=== PATIENT | female | born 1960 | race Caucasian/White ===

== ENCOUNTER 2020-04-09 18:36 | Inpatient (IN) ==
[2020-04-09] MEDS ORDERED: Morphine Sulfate 2 MG/ML SYRINGE IVP ONE (19:13)
[2020-04-09] MEDS ORDERED: 0.9 % Sodium Chloride 1,000 ML IVC ONE (19:18)
[2020-04-09] MEDS ORDERED: Dexamethasone 4 MG/ML VIAL IVP ONE (19:18)
[2020-04-09 19:23] LABS: Basophils % 0.2 %; Hematocrit 37.6 % (35.3-44.9); Hemoglobin 12.3 g/dL (11.5-15.4); Immature Granulocytes % 2.1 % (0-4); Lymphocytes # 0.4 K/mcL (0.6-4.6); Lymphocytes % 5.2 %; Mean Corpuscular HGB Conc 32.7 g/dL (31.6-35.5); Mean Corpuscular Hemoglobin 31.8 pg (28.0-33.3); Mean Corpuscular Volume 97.2 fL (83.0-100.0); Mean Platelet Volume 8.8 fL (9.4-12.4); Monocytes # 0.3 K/mcL (0.0-1.3); Monocytes % 3.9 %; Neutrophils # 7.2 K/mcL (1.6-8.9); Platelet Count 167 K/mcL (140-400); Red Blood Count 3.87 M/mcL (3.82-4.97); Red Cell Distribution Width 13.4 % (11.5-14.5); Segmented Neutrophils % 88.6 %; White Blood Count 8.1 K/mcL (4.3-11.1)
[2020-04-09 19:45] LABS: BUN/Creatinine Ratio 18 (6-26); Blood Urea Nitrogen 12 mg/dL (8-23); Calcium 8.8 mg/dL (8.6-10.3); Carbon Dioxide 22 mEq/L (23-29); Chloride 102 mEq/L (98-107); Glucose 119 mg/dL (70-105); Osmolality,Calculated 281 (280-300); Potassium 3.9 mEq/L (3.5-5.1); Sodium 135 mEq/L (136-145); eGFR For African Americans > 60 (> 60); eGFR For Non-African Americans > 60 (> 60)
[2020-04-09 19:46] LABS: Troponin I < 0.03 ng/mL (< 0.04)
[2020-04-09 20:20] LABS: Bacteria,Urine Many per hpf (None-Few); Bilirubin,Urine Small (Negative); Blood,Urine Negative (Negative); Clarity,Urine Turbid (Clear); Color,Urine Yellow (Yellow); Glucose,Urine (UA) Normal (Normal); Ketones,Urine 80 mg/dL (Negative); Leukocyte Esterase,Urine Trace (Negative); Mucus,Urine Few per lpf (None-Few); Nitrite,Urine Positive (Negative); Protein,Urine 50 mg/dL (Neg-Trace); RBC,Urine 0-3 per hpf (0-3); Specific Gravity,Urine 1.027 (1.010-1.025); Squamous Epithelial Cell,Urine Moderate per hpf (None-Few)
[2020-04-09] MEDS ORDERED: levoFLOXacin 750 MG/150 ML 750 MG/150 ML BAG IVPB ONE (20:23)
[2020-04-09] MEDS ORDERED: Isovue-370 500 ML BOTTLE IVP ONE (20:38)
[2020-04-09] MEDS ORDERED: Ondansetron 4 MG/2 ML VIAL IVP ONE (23:11)
[2020-04-09 23:59] LABS: Adenovirus Not Detected (Not Detect); Coronavirus 229E Not Detected (Not Detect); Coronavirus HKU1 Not Detected (Not Detect); Coronavirus NL63 Not Detected (Not Detect); Coronavirus OC43 Not Detected (Not Detect)
[2020-04-10] LABS: Bordetella Pertussis Not Detected (Not Detect); Chlamydophila pneumoniae Not Detected (Not Detect); Human Metapneumovirus Not Detected (Not Detect); Human Rhinovirus/Enterovirus Not Detected (Not Detect); Influenza A Subtype 2009 H1 Not Detected (Not Detect); Influenza B Not Detected (Not Detect); Mycoplasma pneumoniae Not Detected (Not Detect); Parainfluenza Virus 1 Not Detected (Not Detect); Parainfluenza Virus 2 Not Detected (Not Detect); Parainfluenza Virus 3 Not Detected (Not Detect); Parainfluenza Virus 4 Not Detected (Not Detect); Respiratory Syncytial Virus Not Detected (Not Detect); SARS-CoV-2 DETECTED (Not Detect)
[2020-04-10] MEDS ORDERED: Naloxone 0.4 MG/ML INJ IVP PRN (00:49)
[2020-04-10] MEDS ORDERED: Furosemide 40 MG/4 ML VIAL IVP ONE (00:59)
[2020-04-10] MEDS ORDERED: Benzonatate 100 MG CAPSULE PO PRN (02:31)
[2020-04-10] MEDS: *HR* Enoxaparin 40 MG/0.4 ML SYRINGE SQ SCH (05:06)
[2020-04-10 06:19] LABS: Basophils % 0.3 %; Hematocrit 36.7 % (35.3-44.9); Hemoglobin 12.1 g/dL (11.5-15.4); Immature Granulocytes % 2.5 % (0-4); Lymphocytes # 0.4 K/mcL (0.6-4.6); Lymphocytes % 6.5 %; Mean Corpuscular Hemoglobin 31.6 pg (28.0-33.3); Mean Corpuscular Volume 95.8 fL (83.0-100.0); Mean Platelet Volume 9.1 fL (9.4-12.4); Monocytes # 0.2 K/mcL (0.0-1.3); Neutrophils # 5.9 K/mcL (1.6-8.9); Platelet Count 197 K/mcL (140-400); Red Blood Count 3.83 M/mcL (3.82-4.97); Red Cell Distribution Width 13.3 % (11.5-14.5); Segmented Neutrophils % 87.7 %; White Blood Count 6.8 K/mcL (4.3-11.1)
[2020-04-10 06:30] LABS: BUN/Creatinine Ratio 22 (6-26); Blood Urea Nitrogen 14 mg/dL (8-23); Calcium 8.9 mg/dL (8.6-10.3); Carbon Dioxide 23 mEq/L (23-29); Chloride 102 mEq/L (98-107); Glucose 162 mg/dL (70-105); Osmolality,Calculated 288 (280-300); Potassium 3.9 mEq/L (3.5-5.1); Sodium 137 mEq/L (136-145); eGFR For African Americans > 60 (> 60); eGFR For Non-African Americans > 60 (> 60)
[2020-04-10] MEDS: Tiotropium 18 MCG inhalation IH SCH (07:49)
[2020-04-10] MEDS ORDERED: *HR* LORazepam 2 MG/ML VIAL IVP ONE (11:18)
[2020-04-10] MEDS: Acetaminophen 325 MG TABLET PO PRN ×2 (11:30→17:16)
[2020-04-10] MEDS: Cyanocobalamin (B-12) 1,000 MCG TABLET PO SCH (13:45)
[2020-04-10] MEDS: Pregabalin 50 MG CAPSULE PO SCH ×2 (13:47→20:12)
[2020-04-10] MEDS ORDERED: Triamcinolone Acet 0.1% CRM 15 GM TUBE TP PRN (14:38)
[2020-04-10] MEDS ORDERED: Loratadine 10 MG TABLET PO PRN (14:38)
[2020-04-10] MEDS: Dexamethasone 4 MG/ML VIAL IVP SCH (17:15)
[2020-04-10] MEDS ORDERED: levoFLOXacin 750 MG/150 ML 750 MG/150 ML BAG IVPB SCH (20:00)
[2020-04-10] MEDS: Fluticasone Propionate Nasal 50 MCG/SPRAY BOTTLE NS SCH (20:12)
[2020-04-10] MEDS: Ondansetron 4 MG/2 ML VIAL IVP PRN (22:24)
[2020-04-11] MEDS: *HR* Enoxaparin 40 MG/0.4 ML SYRINGE SQ SCH (05:13)
[2020-04-11] MEDS: Tiotropium 18 MCG inhalation IH SCH (08:05)
[2020-04-11 08:34] LABS: Basophils % 0.2 %; Hematocrit 37.3 % (35.3-44.9); Hemoglobin 12.5 g/dL (11.5-15.4); Immature Granulocytes % 2.1 % (0-4); Lymphocytes # 0.5 K/mcL (0.6-4.6); Lymphocytes % 4.7 %; Mean Corpuscular HGB Conc 33.5 g/dL (31.6-35.5); Mean Corpuscular Hemoglobin 33.2 pg (28.0-33.3); Mean Corpuscular Volume 98.9 fL (83.0-100.0); Mean Platelet Volume 8.7 fL (9.4-12.4); Monocytes # 0.5 K/mcL (0.0-1.3); Monocytes % 4.9 %; Neutrophils # 9.6 K/mcL (1.6-8.9); Platelet Count 252 K/mcL (140-400); Red Blood Count 3.77 M/mcL (3.82-4.97); Red Cell Distribution Width 13.1 % (11.5-14.5); Segmented Neutrophils % 88.1 %
[2020-04-11 08:36] LABS: White Blood Count 10.9 K/mcL (4.3-11.1)
[2020-04-11 08:55] LABS: Alanine Aminotransferase 114 Units/L (7-52); Albumin 3.8 g/dL (3.5-5.7); Albumin/Globulin Ratio 1.3 (1.1-2.2); Alkaline Phosphatase 196 Units/L (34-104); Aspartate Amino Transferase 104 Units/L (13-39); BUN/Creatinine Ratio 35 (6-26); Bilirubin,Total 0.8 mg/dL (0.3-1.0); Blood Urea Nitrogen 26 mg/dL (8-23); Calcium 9.2 mg/dL (8.6-10.3); Carbon Dioxide 26 mEq/L (23-29); Chloride 101 mEq/L (98-107); Glucose 131 mg/dL (70-105); Osmolality,Calculated 291 (280-300); Sodium 137 mEq/L (136-145); Total Protein 6.8 g/dL (6.4-8.9); eGFR For African Americans > 60 (> 60); eGFR For Non-African Americans > 60 (> 60)
[2020-04-11] MEDS: Dexamethasone 4 MG/ML VIAL IVP SCH (09:11)
[2020-04-11] MEDS: Pregabalin 50 MG CAPSULE PO SCH ×3 (09:12→21:01)
[2020-04-11] MEDS: Cyanocobalamin (B-12) 1,000 MCG TABLET PO SCH (09:12)
[2020-04-11] MEDS: Fluticasone Propionate Nasal 50 MCG/SPRAY BOTTLE NS SCH ×3 (09:13→22:56)
[2020-04-11] MEDS: lisinopriL 5 MG TABLET PO SCH (09:13)
[2020-04-11] MEDS: Ondansetron 4 MG/2 ML VIAL IVP PRN (09:19)
[2020-04-11] MEDS: Acetaminophen 325 MG TABLET PO PRN (22:56)
[2020-04-12 04:10] LABS: Alanine Aminotransferase 119 Units/L (7-52); Albumin 3.6 g/dL (3.5-5.7); Albumin/Globulin Ratio 1.2 (1.1-2.2); Alkaline Phosphatase 162 Units/L (34-104); Aspartate Amino Transferase 90 Units/L (13-39); BUN/Creatinine Ratio 35 (6-26); Basophils % 0.2 %; Bilirubin,Total 0.8 mg/dL (0.3-1.0); Blood Urea Nitrogen 27 mg/dL (8-23); Calcium 9.1 mg/dL (8.6-10.3); Carbon Dioxide 28 mEq/L (23-29); Chloride 99 mEq/L (98-107); Globulin 2.9 g/dL (2.4-3.5); Glucose 126 mg/dL (70-105); Hematocrit 37.7 % (35.3-44.9); Hemoglobin 12.2 g/dL (11.5-15.4); Immature Granulocytes % 3.9 % (0-4); Lymphocytes # 0.6 K/mcL (0.6-4.6); Lymphocytes % 6.8 %; Mean Corpuscular HGB Conc 32.4 g/dL (31.6-35.5); Mean Corpuscular Hemoglobin 32.5 pg (28.0-33.3); Mean Corpuscular Volume 100.5 fL (83.0-100.0); Mean Platelet Volume 9.1 fL (9.4-12.4); Monocytes # 0.6 K/mcL (0.0-1.3); Monocytes % 7.1 %; Neutrophils # 6.9 K/mcL (1.6-8.9); Osmolality,Calculated 291 (280-300); Platelet Count 278 K/mcL (140-400); Potassium 4.4 mEq/L (3.5-5.1); Red Blood Count 3.75 M/mcL (3.82-4.97); Red Cell Distribution Width 13.1 % (11.5-14.5); Sodium 137 mEq/L (136-145); Total Protein 6.5 g/dL (6.4-8.9); White Blood Count 8.5 K/mcL (4.3-11.1); eGFR For African Americans > 60 (> 60); eGFR For Non-African Americans > 60 (> 60)
[2020-04-12 04:47] LABS: Hepatitis B Surface Antigen Nonreactive (Nonreactive)
[2020-04-12 05:16] LABS: Hepatitis C Virus Antibody Nonreactive (Nonreactive)
[2020-04-12 05:17] LABS: Hepatitis A Antibody IgM Nonreactive (Nonreactive); Hepatitis B Core IgM Nonreactive (Nonreactive)
[2020-04-12] MEDS: *HR* Enoxaparin 40 MG/0.4 ML SYRINGE SQ SCH (05:59)
[2020-04-12] MEDS: Tiotropium 18 MCG inhalation IH SCH (08:03)
[2020-04-12] MEDS: Dexamethasone 4 MG/ML VIAL IVP SCH (09:36)
[2020-04-12] MEDS: Pregabalin 50 MG CAPSULE PO SCH (09:37)
[2020-04-12] MEDS: Cyanocobalamin (B-12) 1,000 MCG TABLET PO SCH (09:37)
[2020-04-12] MEDS: Fluticasone Propionate Nasal 50 MCG/SPRAY BOTTLE NS SCH (09:38)
[2020-04-12] MEDS: lisinopriL 5 MG TABLET PO SCH (09:38)
[2020-04-12 12:14] VITALS: BP 145/80
== END 2020-04-12 13:26 | disposition home health service (06) | DRG 871 ==
LOC: EMEROOARM 18:36 → 2NENU 18:36 → SUATTDRO 04-10 17:33 → 3BNU 04-11 18:36
PROVIDERS: ADMIT Internal Medicine; ATTEND Family Medicine